=== PATIENT | female | born 1985 ===

== ENCOUNTER 2016-07-15 01:54 | Observation (INO) | payer MEDICAID ==
[~2016-07-15] VITALS: Ht 160 cm; Wt 110.2 kg
[2016-07-15] MEDS ORDERED: ACETAMINOPHEN 325 MG TAB PO ONE ×3 (02:58→03:12)
== END 2016-07-15 04:05 | disposition home or self-care (01) | DRG 566 ==
LOC: LDRP 01:54
PROVIDERS: ADMIT Specialist; ATTEND Specialist
DX: O26.892 Other specified pregnancy related conditions, second trimester (principal); O30.002 Twin pregnancy, unspecified number of placenta and unspecified number of amniotic sacs, second trimester; M54.5 Low back pain; O62.9 Abnormality of forces of labor, unspecified; Z3A.27 27 weeks gestation of pregnancy
CPT/HCPCS: 59025; 81002; G0378

== ENCOUNTER 2016-09-10 19:05 | Inpatient (IN) | payer MEDICAID ==
[~2016-09-10] VITALS: Ht 160 cm; Wt 122.9 kg
[2016-09-10 19:58] LABS: Urine Bilirubin Negative (Negative); Urine Blood TRACE /uL (Negative); Urine Color Yellow (Yellow); Urine Glucose Normal (Normal); Urine Ketone Negative (Negative); Urine Mucus FEW (None Seen); Urine Nitrite Negative (Negative); Urine RBC 9 /hpf (0 - 4); Urine Squamous Epithelial Cell MOD /hpf (<5)
[2016-09-10] MEDS ORDERED: LACTATED RINGER'S 1,000 ML IV SCH (20:57)
[2016-09-10 21:55] LABS: Albumin 1.9 g/dL (3.4-5.0); BUN/Creatinine Ratio 15.5; Bilirubin, Total 0.2 mg/dL (0.2-1.0); Calcium 8.5 mg/dL (8.5-10.1); Potassium 3.9 mmol/L (3.5-5.1); Total Protein 5.7 g/dL (6.4-8.2); Uric Acid 5.6 mg/dL (2.6-6.0)
[2016-09-10 22:21] LABS: INR 0.85 (0.9-1.15); Partial Thromboplastin Time 30.1 sec (22.64-33.71)
[2016-09-10 22:25] LABS: Prothrombin Time 9.3 sec (9.37-12.3)
[2016-09-10 22:43] LABS: Basophils # (auto) 0 uL; Basophils % (auto) 0.3 % (0.0-2.0); CONDITION Y; Eosinophils # (auto) 0.1 uL; Eosinophils % (auto) 1.2 % (0.0-7.0); Hematocrit 34.8 % (36.0-46.0); Hemoglobin 11.6 g/dL (12.2-16.2); Lymphocytes # (auto) 2.3 uL; Mean Corpuscular Hemoglobin 29.5 pg (28.0-32.0); Mean Corpuscular Hgb Conc. 33.4 g/dL (32.0-36.0); Mean Corpuscular Volume 88.5 fL (80.0-100.0); Mean Platelet Volume 14.9 fL (7.4-10.4); Monocytes # (auto) 0.6 uL; Monocytes % (auto) 8.7 % (0.0-12.0); Neutrophils % (auto) 56.8 % (37.0-80.0); Platelet Count (auto) 93 10^3/uL (140-450); SUSPECT SEE PRINTOUT; White Blood Cell 7.1 10^3/uL (4.4-10.8)
[2016-09-10 23:06] LABS: Platelet Estimate Adequate
[2016-09-10 23:52] LABS: Urine RBC None Seen /hpf (0 - 4)
[2016-09-10 23:58] LABS: Urine Bilirubin Negative (Negative); Urine Blood Negative /uL (Negative); Urine Color Yellow (Yellow); Urine Glucose Normal (Normal); Urine Ketone Negative (Negative); Urine Nitrite Negative (Negative); Urine Squamous Epithelial Cell FEW /hpf (<5); Urine Urobilinogen Normal (Negative)
[2016-09-11] VITALS (13 sets, daily range): BP systolic 118–154; BP diastolic 71–98
[2016-09-11] MEDS ORDERED: PREN-153 PO (07:06)
[2016-09-11] MEDS ORDERED: FOLI1TAB6 PO (07:07)
[2016-09-11] MEDS ORDERED: TETRACAINE 1% INJ 2 ML VIAL IJ ONE (07:32)
[2016-09-11] MEDS ORDERED: ceFAZolin 1GM VL ONE (07:32)
[2016-09-11] MEDS ORDERED: MIDAZOLAM HCL 1MG/1ML-2 ML VIAL ONE (07:32)
[2016-09-11] MEDS ORDERED: fentaNYL CITRATE 100 MCG/2 ML VL ONE (07:32)
[2016-09-11] MEDS ORDERED: OXYTOCIN 10 UNIT/ML 10ML VIAL ONE (08:07)
[2016-09-11] MEDS ORDERED: PHENYLEPHRINE HCL 10 MG/ML VL ONE (08:12)
[2016-09-11] MEDS: ONDANSETRON HCL 4 MG/2 ML VIAL IV ONE ×2 (08:30→09:05)
[2016-09-11] MEDS ORDERED: MIDAZOLAM HCL 1MG/1ML-2 ML VIAL IV PRN (08:30)
[2016-09-11] MEDS ORDERED: ePHEDrine SULFATE 50 MG/ML AMP IV PRN (08:30)
[2016-09-11] MEDS ORDERED: LABETALOL HCL 5 MG/ML 4ML SYRINGE IV PRN (08:30)
[2016-09-11] MEDS ORDERED: MORPHINE SULF INJ 2 MG/ML SYRINGE 1ML IV PRN ×2 (08:30→08:45)
[2016-09-11] MEDS ORDERED: HYDROmorphone HCL 2 MG/ML VL IV PRN ×2 (08:30→08:45)
[2016-09-11] MEDS ORDERED: KETOROLAC TROMETH 30 MG/ML 1ML VIAL IV ONE (08:30)
[2016-09-11] MEDS: LACT. RINGERS/OXYTOCIN 20UNITS 1,000 ML IV SCH ×2 (08:38→15:18)
[2016-09-11] MEDS ORDERED: ceFAZolin 1 GM/50ML D5W BAG IV SCH (08:45)
[2016-09-11] MEDS ORDERED: ONDANSETRON HCL 4 MG/2 ML VIAL IV PRN (08:45)
[2016-09-11] MEDS ORDERED: OXYTOCIN 10UNIT/ML 1ML VIAL ONE (09:30)
[2016-09-11 13:21] LABS: Basophils # (auto) 0 uL; Basophils % (auto) 0.2 % (0.0-2.0); CONDITION Y; Eosinophils # (auto) 0 uL; Eosinophils % (auto) 0.1 % (0.0-7.0); Hematocrit 31.6 % (36.0-46.0); Hemoglobin 10.6 g/dL (12.2-16.2); Lymphocytes # (auto) 1.7 uL; Lymphocytes % (auto) 14.5 % (10.0-50.0); Mean Corpuscular Hemoglobin 29.8 pg (28.0-32.0); Mean Corpuscular Hgb Conc. 33.4 g/dL (32.0-36.0); Mean Corpuscular Volume 89.2 fL (80.0-100.0); Mean Platelet Volume 14.1 fL (7.4-10.4); Monocytes # (auto) 0.7 uL; Monocytes % (auto) 5.8 % (0.0-12.0); Neutrophils # (auto) 9.1 uL; Neutrophils % (auto) 79.4 % (37.0-80.0); Platelet Count (auto) 99 10^3/uL (140-450); SUSPECT SEE PRINTOUT; White Blood Cell 11.5 10^3/uL (4.4-10.8)
[2016-09-11 13:58] LABS: Albumin 1.6 g/dL (3.4-5.0); BUN/Creatinine Ratio 13.2; Bilirubin, Total 0.2 mg/dL (0.2-1.0); Potassium 5.4 mmol/L (3.5-5.1); Total Protein 4.9 g/dL (6.4-8.2)
[2016-09-11] MEDS: KETOROLAC TROMETH 30 MG/ML 1ML VIAL IV PRN ×2 (14:25→21:56)
[2016-09-11] MEDS: ceFAZolin 1 GM/50ML D5W BAG IV SCH ×2 (14:25→21:50)
[2016-09-11] MEDS ORDERED: hydrALAZINE HCL 20 MG/ML VL IV PRN (15:45)
[2016-09-11] MEDS ORDERED: FUROSEMIDE 20 MG/2 ML VIAL IV ONE (17:15)
[2016-09-12] VITALS (17 sets, daily range): BP systolic 112–147; BP diastolic 56–96
[2016-09-12] MEDS: ceFAZolin 1 GM/50ML D5W BAG IV SCH (05:37)
[2016-09-12 06:33] LABS: Basophils # (auto) 0 uL; Basophils % (auto) 0.3 % (0.0-2.0); CONDITION Y; Eosinophils # (auto) 0.1 uL; Eosinophils % (auto) 0.4 % (0.0-7.0); Hemoglobin 8.9 g/dL (12.2-16.2); Lymphocytes # (auto) 3.1 uL; Lymphocytes % (auto) 25.8 % (10.0-50.0); Mean Corpuscular Hemoglobin 29.6 pg (28.0-32.0); Mean Corpuscular Volume 89.8 fL (80.0-100.0); Mean Platelet Volume 14.6 fL (7.4-10.4); Monocytes # (auto) 1.1 uL; Monocytes % (auto) 9.5 % (0.0-12.0); Neutrophils # (auto) 7.7 uL; Platelet Count (auto) 100 10^3/uL (140-450); Red Cell Distribution Width 16.4 % (11.6-16.0); SUSPECT SEE PRINTOUT; White Blood Cell 12.1 10^3/uL (4.4-10.8)
[2016-09-12] MEDS: KETOROLAC TROMETH 30 MG/ML 1ML VIAL IV PRN (06:41)
[2016-09-12 07:29] LABS: Albumin 1.5 g/dL (3.4-5.0); Calcium 7.7 mg/dL (8.5-10.1); Potassium 4.7 mmol/L (3.5-5.1)
[2016-09-12 07:31] LABS: BUN/Creatinine Ratio 15.3
[2016-09-12 07:35] LABS: Bilirubin, Total 0.2 mg/dL (0.2-1.0); Total Protein 4.5 g/dL (6.4-8.2)
[2016-09-12] MEDS ORDERED: LACTATED RINGER'S 1,000 ML IV SCH (07:47)
[2016-09-12] MEDS ORDERED: BISACODYL 10 MG RECT SUPP PR PRN (08:00)
[2016-09-12 08:49] LABS: Giant Platelets Few; Large Platelets MODERATE; Platelet Estimate Adequate
[2016-09-12] MEDS: SIMETHICONE 80 MG CHEWABLE TABLET PO SCH ×4 (08:58→21:52)
[2016-09-12] MEDS: HYDROcodone-ACET 10/325MG TAB PO PRN ×3 (08:59→21:53)
[2016-09-12] MEDS: FERROUS SULFATE 325 MG TAB PO SCH ×2 (10:21→21:52)
[2016-09-12] MEDS: DOCUSATE CALCIUM 240 MG CAP PO SCH (10:21)
[2016-09-12] MEDS: DOCUSATE SOD 100 MG CAP PO SCH ×2 (10:21→21:52)
[2016-09-12] MEDS: IBUPROFEN 800 MG TAB PO PRN (19:42)
[2016-09-13 03:19] VITALS: BP 145/89
[2016-09-13] MEDS: HYDROcodone-ACET 10/325MG TAB PO PRN ×2 (03:20→07:26)
[2016-09-13] MEDS: SIMETHICONE 80 MG CHEWABLE TABLET PO SCH ×4 (05:53→22:40)
[2016-09-13] MEDS: IBUPROFEN 800 MG TAB PO PRN ×2 (05:53→17:20)
[2016-09-13] MEDS: DOCUSATE SOD 100 MG CAP PO SCH ×2 (07:27→22:40)
[2016-09-13] MEDS: DOCUSATE CALCIUM 240 MG CAP PO SCH (07:27)
[2016-09-13] MEDS: FERROUS SULFATE 325 MG TAB PO SCH ×2 (07:27→22:40)
[2016-09-13 08:00] VITALS: BP 149/95
[2016-09-13] MEDS ORDERED: HYDROcodone-ACET 5/325MG TAB PO PRN (11:30)
[2016-09-13] MEDS: LABETALOL HCL 200 MG TAB PO SCH (11:50)
[2016-09-13 12:00] VITALS: BP 135/77
[2016-09-13 12:32] LABS: Basophils # (auto) 0 uL; Basophils % (auto) 0.2 % (0.0-2.0); CONDITION Y; DEFINITIVE SEE PRINTOUT; Eosinophils # (auto) 0.3 uL; Eosinophils % (auto) 3.3 % (0.0-7.0); Hematocrit 24.7 % (36.0-46.0); Hemoglobin 8.1 g/dL (12.2-16.2); Lymphocytes # (auto) 1.9 uL; Lymphocytes % (auto) 21.4 % (10.0-50.0); Mean Corpuscular Hemoglobin 29.5 pg (28.0-32.0); Mean Corpuscular Hgb Conc. 32.8 g/dL (32.0-36.0); Mean Corpuscular Volume 90.1 fL (80.0-100.0); Mean Platelet Volume 13.3 fL (7.4-10.4); Monocytes # (auto) 0.7 uL; Monocytes % (auto) 8.3 % (0.0-12.0); Neutrophils # (auto) 5.8 uL; Neutrophils % (auto) 66.8 % (37.0-80.0); Platelet Count (auto) 111 10^3/uL (140-450); Red Cell Distribution Width 16.9 % (11.6-16.0); SUSPECT SEE PRINTOUT; White Blood Cell 8.7 10^3/uL (4.4-10.8)
[2016-09-13 12:54] LABS: Albumin 1.8 g/dL (3.4-5.0); BUN/Creatinine Ratio 18.6; Bilirubin, Total 0.2 mg/dL (0.2-1.0); Potassium 3.8 mmol/L (3.5-5.1); Total Protein 5.1 g/dL (6.4-8.2); Uric Acid 5.2 mg/dL (2.6-6.0)
[2016-09-13 13:02] LABS: INR 0.85 (0.9-1.15); Partial Thromboplastin Time 27.1 sec (22.64-33.71)
[2016-09-13 13:36] LABS: Prothrombin Time 9.3 sec (9.37-12.3)
[2016-09-13 13:49] LABS: Giant Platelets Few; Large Platelets MODERATE; Platelet Estimate Adequate
[2016-09-13 13:52] LABS: Urine Bilirubin Negative (Negative); Urine Blood 2+ /uL (Negative); Urine Color Yellow (Yellow); Urine Glucose Normal (Normal); Urine Ketone Negative (Negative); Urine Nitrite Negative (Negative); Urine RBC 9 /hpf (0 - 4); Urine Squamous Epithelial Cell FEW /hpf (<5); Urine Urobilinogen Normal (Negative); Urine pH 6.5 (5.0-8.0)
[2016-09-13 16:20] VITALS: BP 119/75
[2016-09-13 20:22] VITALS: BP 137/81
[2016-09-13] MEDS: HYDROcodone-ACET 5/325MG TAB PO PRN (20:37)
[2016-09-13 23:05] VITALS: BP 136/70
[2016-09-14] MEDS: LABETALOL HCL 200 MG TAB PO SCH (00:11)
[2016-09-14 03:20] VITALS: BP 130/81
[2016-09-14] MEDS: HYDROcodone-ACET 5/325MG TAB PO PRN (03:31)
[2016-09-14] MEDS: SIMETHICONE 80 MG CHEWABLE TABLET PO SCH (05:39)
[2016-09-14] MEDS: IBUPROFEN 800 MG TAB PO PRN (05:40)
[2016-09-14 07:40] VITALS: BP 124/77
[2016-09-14] MEDS ORDERED: TETANUS-DIPTH-ACEL PERTUSSIS 0.5ML SYRG IM ONE (10:00)
[2016-09-14] MEDS ORDERED: MEASLES, MUMPS & RUBELLA VAC(MMRII) 0.5ML SC ONE (10:00)
[2016-09-14] MEDS ORDERED: LABETALOL HCL 200 MG TAB PO SCH (10:00)
[2016-09-14] MEDS: DOCUSATE CALCIUM 240 MG CAP PO SCH (10:46)
[2016-09-14] MEDS: DOCUSATE SOD 100 MG CAP PO SCH (10:46)
[2016-09-14] MEDS: FERROUS SULFATE 325 MG TAB PO SCH (10:46)
== END 2016-09-14 11:01 | disposition home or self-care (01) | DRG 540 ==
LOC: OBSVTOIN 19:05 → LDRP 19:05
PROVIDERS: ADMIT Specialist; ATTEND Specialist
PROC: 0UL70ZZ Occlusion of Bilateral Fallopian Tubes, Open Approach (ICD-10-PCS; 2016-09-11)
PROC: 10D00Z1 Extraction of Products of Conception, Low, Open Approach (ICD-10-PCS; principal; 2016-09-11 07:18)
DX: O14.93 Unspecified pre-eclampsia, third trimester (principal); D69.6 Thrombocytopenia, unspecified; O99.12 Other diseases of the blood and blood-forming organs and certain disorders involving the immune mechanism complicating childbirth; O30.003 Twin pregnancy, unspecified number of placenta and unspecified number of amniotic sacs, third trimester; Z68.42 Body mass index [BMI] 45.0-49.9, adult; O99.214 Obesity complicating childbirth; O32.1XX0 Maternal care for breech presentation, not applicable or unspecified; O76 Abnormality in fetal heart rate and rhythm complicating labor and delivery; Z37.2 Twins, both liveborn; E66.9 Obesity, unspecified; Z3A.36 36 weeks gestation of pregnancy; Z30.2 Encounter for sterilization; Z83.3 Family history of diabetes mellitus; Z88.8 Allergy status to other drugs, medicaments and biological substances
CPT/HCPCS: 36415; 59025; 76805; 76818; 80053; 81001; 81002; 84550; 85025; 85379; 85610; 85730; 86850; 86900; 86901; 88307; 90715; 94760; 96361; 96366; 96372; 96374; 96375; J0690; J1885; J2250; J2405; J2590